=== PATIENT | female | born 1995 | race American Indian/Alaskan Native ===

== ENCOUNTER 2020-12-29 13:57 | Inpatient (IN) | payer MEDICAID ==
[2020-12-29] MEDS ORDERED: ePHEDrine SULFATE 50 MG/1 ML INJ IV PRN (15:13)
[2020-12-29] MEDS ORDERED: MINERAL OIL 30 ML ORAL LIQD PO PRN (15:13)
[2020-12-29] MEDS ORDERED: LOPERAMIDE 2 MG CAP PO PRN (15:13)
[2020-12-29] MEDS ORDERED: BUTORPHANOL 2 MG/1 ML INJ IV PRN (15:13)
[2020-12-29] MEDS ORDERED: ONDANSETRON 4 MG/2 ML INJ IV PRN (15:13)
[2020-12-29] MEDS ORDERED: OXYTOCIN 10 UNIT/1 ML INJ IM PRN (15:13)
[2020-12-29] MEDS ORDERED: TERBUTALINE 1 MG/1 ML INJ SUB-Q PRN (15:13)
[2020-12-29] MEDS ORDERED: CARBOPROST TROMETHAMINE 250 MCG/1 ML INJ IM PRN (15:13)
[2020-12-29] MEDS ORDERED: LIDOCAINE (2%) 20 MG/1 ML VIAL 20 ML MDV INFILTRATI ONE (15:13)
[2020-12-29] MEDS ORDERED: METHYLERGONOVINE MALEATE 0.2 MG/ML VIAL IM PRN (15:13)
[2020-12-29] MEDS ORDERED: miSOPROStol 200 MCG TAB PR PRN (15:13)
[2020-12-29] MEDS ORDERED: AMPICILLIN/NS 2 GM/100 ML 2 GM/100 ML BAG IV ONE (15:13)
[2020-12-29] MEDS ORDERED: fentaNYL 100 MCG/2 ML INJ IV PRN (15:13)
[2020-12-29] MEDS ORDERED: ACETAMINOPHEN 325 MG TAB PO PRN ×2 (15:13→20:39)
--- NOTE | 2020-12-29 15:26 | History and Physical Report ---
History of Present Illness Date of examination: 12/29/20 Date of admission: 12/29/20 Chief complaint: Contractions History of present illness: 25 year old presents to L&D with contractions. Patient reports contractions started at 3:00 AM. Patient denies leaking of water. She reports small amount of bloody show. She reports active movement. Patient received care at [facility] and records are available. EDC 01/07/21 (confirmed by 14 week US). significant for the following: IUGR, GBS positive. labs are as follows: A+, antibody screen negative, hepatitis B surface antigen negative, hepatitis C antibody negative, HIV negative, RPR nonreactive, rubella immune, varicella immune, hemoglobin electrophoresis negative, 1 hour sugar test 126, AFP negative, pap smear negative, gonorrhea negative, chlamydia negative, trichomonas negative, GBS positive. Past History Past Medical History: no pertinent history Past Surgical History: no surgical history [employer] History: denies: abnormal PAP smear, chlamydia, gonorrhea, hepatitis B, hepatitis C, herpes, HIV, syphilis, trichomonas Family/Genetic History: none Social history: lives with family, full code. denies: smoking, alcohol abuse, prescription drug abuse, IV drug use - Obstetrical History Expected Date of Delivery: 01/07/21 Actual Gestation: 38 Week(s) 5 Day(s) : 2 Para: 1 Hx # Term Pregnancies: 1 Number of Pregnancies: 0 Spontaneous Abortions: 0 Induced : 0 Number of Living Children: 1 Medications and Allergies Allergies Allergy/AdvReac Type Severity Reaction Status Date / Time No Known Allergies Allergy Verified 12/29/20 14:51 Active Meds: Active Medications Acetaminophen (Acetaminophen 325 Mg Tab) 650 mg PO Q4H PRN PRN Reason: Pain, Mild (1-3) Butorphanol Tartrate (Butorphanol 2 Mg/1 Ml Inj) 1 mg IV Q2H PRN PRN Reason: Pain, Moderate(4-6) LABOR PAIN Carboprost Tromethamine (Carboprost Tromethamine 250 Mcg/1 Ml Inj) 250 mcg IM ONCE PRN PRN Reason: Uterine Bleeding Ephedrine Sulfate (Ephedrine Sulfate 50 Mg/1 Ml Inj) 10 mg IV Q2M PRN PRN Reason: Hypotension Fentanyl (Fentanyl 100 Mcg/2 Ml Inj) 100 mcg IV Q2H PRN PRN Reason: Pain,Severe (7-10) LABOR PAIN Oxytocin/Sodium Chloride (Pitocin/Ns 30 Unit/500ml) 30 units in 500 mls @ 2 mls/hr IV TITR SARAH; Protocol Lactated Ringer's (Lactated Ringers) 1,000 mls @ 125 mls/hr IV DIRECT SARAH Oxytocin/Sodium Chloride (Pitocin/Ns 30 Unit/500ml) 30 units in 500 mls @ 40 mls/hr IV TITR SARAH; Protocol Ampicillin Sodium (Ampicillin/Ns 2 Gm/100 Ml) 2 gm in 100 mls @ 100 mls/hr IV ONCE ONE; Protocol Stop: 12/29/20 16:12 Ampicillin Sodium (Ampicillin/Ns 1 Gm/50 Ml) 1 gm in 50 mls @ 100 mls/hr IV Q4H SARAH; Protocol Loperamide HCl (Loperamide 2 Mg Cap) 2 mg PO ONCE PRN PRN Reason: give with Hemabate Methylergonovine Maleate (Methylergonovine Maleate 0.2 Mg/Ml Vial) 0.2 mg IM ONCE PRN PRN Reason: Uterine Bleeding Mineral Oil (Mineral Oil 30 Ml Oral Liqd) 30 ml PO QHS PRN PRN Reason: Constipation Misoprostol (Misoprostol 200 Mcg Tab) 800 mcg KS ONCE PRN PRN Reason: Uterine Bleeding Ondansetron HCl (Ondansetron 4 Mg/2 Ml Inj) 4 mg IV Q8H PRN PRN Reason: Nausea And Vomiting Oxytocin (Oxytocin 10 Unit/1 Ml Inj) 10 unit IM ONCE PRN PRN Reason: Uterine Bleeding Terbutaline Sulfate (Terbutaline 1 Mg/1 Ml Inj) 0.25 mg SUB-Q ONCE PRN PRN Reason: Hyperstimulation/Hypertonicity Review of Systems All systems: negative (contractions) - Vital Signs Vital signs: Vital Signs Pulse Pulse Ox 87 82 L 12/29/20 14:44 12/29/20 14:44 Temp Pulse Resp BP Pulse Ox 98.3 F 79 18 121/60 99 12/29/20 14:51 12/29/20 15:14 12/29/20 14:51 12/29/20 14:51 12/29/20 15:14 - Physical Exam Abdomen: Positive: normal appearance, soft. Negative: distention, tenderness, guarding, rigidity Genitourinary (Female): Positive: normal external genitalia, normal perenium. Negative: perineal/vulvar lesions Vagina: Positive: normal moisture Uterus: Positive: enlarged. Negative: tender Anus/Rectum: Positive: normal perianal skin Extremities: Positive: normal. Negative: tenderness, edema - Obstetrical FHR: category 1 Uterine Contraction Monitor Mode: External Cervical Dilatation: 4.5 Cervical Effacement Percentage: 90 station: 0 Uterine Contraction Pattern: Regular Uterine Contraction Intensity: Moderate Results All other labs normal. Assessment and Plan A: at 38 weeks, 5 days gestation. Active labor. GBS positive. IUGR. P: Admit. Continuous EFM. GBS prophylaxis. Anticipate vaginal .
[2020-12-29] MEDS: LACTATED RINGERS 1,000 ML IV SCH ×3 (15:55→17:50)
[2020-12-29] MEDS ORDERED: OXYTOCIN DRIP 30 UNITS/500 ML BAG IV SCH ×2 (16:00)
[2020-12-29 16:18] LABS: Hematocrit 36.6 % (30.3-42.9); Hemoglobin 12.6 gm/dl (10.1-14.3); Mean Corpuscular HGB Conc 34 % (30-34); Mean Corpuscular Volume 83 fl (79-97); Platelet Count 198 K/mm3 (140-440); Red Blood Count 4.43 M/mm3 (3.65-5.03); Red Cell Distribution Width 13.9 % (13.2-15.2)
[2020-12-29] MEDS ORDERED: NALOXONE 2 MG/2 ML INJ IV PRN (17:03)
--- NOTE | 2020-12-29 17:05 | Anesthesia Consultation ---
Anesthesia Consult and Med Hx Date of service: 12/29/20 - Airway Anesthetic Teeth Evaluation: Poor ROM Head & Neck: Adequate Mental/Hyoid Distance: Adequate Mallampati Class: Class II Intubation Access Assessment: Probably Good - Pulmonary Exam CTA: Yes - Cardiac Exam Cardiac Exam: RRR - Pre-Operative Health Status ASA Pre-Surgery Classification: ASA2 Proposed Anesthetic Plan: Epidural - Pulmonary Hx Smoking: No Hx Asthma: No Hx Respiratory Symptoms: No SOB: No COPD: No Home Oxygen Therapy: No Hx Pneumonia: No Hx Sleep Apnea: No - Cardiovascular System Hx Hypertension: No Hx Coronary Artery Disease: No Hx Heart Attack/AMI: No Hx Angina: No Hx Percutaneous Transluminal Coronary Angioplasty (PTCA): No Hx Cardia Arrhythmia: No Hx Pacemaker: No Hx Internal Defibrillator: No Hx Valvular Heart Disease: No Hx Heart Murmur: No Hx Peripheral Vascular Disease: No - Central Nervous System Hx Neuromuscular Disorder: No Hx Seizures: No CVA: No Hx Back Pain: Yes Hx Psychiatric Problems: No - Gastrointestinal Hx Ulcer: No Hx Gastroesophageal Reflux Disease: Yes - Endocrine Hx Renal Disease: No Hx End Stage Renal Disease: No Hx Cirrhosis: No Hx Liver Disease: No Hx Insulin Dependent Diabetes: No Hx Non-Insulin Dependent Diabetes: No Hx Thyroid Disease: No Hx Hypothyroidism: No Hx Hyperthyroidism: No - Hematic Hx Anemia: No Hx Sickle Cell Disease: No - Other Systems Hx Alcohol Use: No Hx Substance Use: No Hx Cancer: No Hx Obesity: Yes
--- NOTE | 2020-12-29 17:49 | Progress Note ---
Labor Epidural - Labor Epidural Start Time: 17:27 Stop Time: 17:35 Performed by:: EDUARD ESCOBAR Procedure: Patient is requesting a laboring epidural for laboring pain. Patient IDed, H&P reviewed, all questions and concerns were answered, and consent was signed. Timeout was performed at bedside. Patient in sitting position. Sterile prep and drape was performed. [3] ml of 1% lidocaine skin wheal at L[3]- L [4]. 18- gauge Jonathan epidural needle was advanced to loss of resistance with saline technique 6cm. Negative CSF negative blood. Epidural catheter advanced to [10] centimeters. [NEGATIVE] Aspiration [NEGATIVE] test dose. Sterile dressing applied. Patient tolerated procedure.
[2020-12-29] MEDS: ePHEDrine SULFATE 50 MG/1 ML INJ IV PRN ×3 (17:57→18:58)
[2020-12-29] MEDS ORDERED: fentaNYL-BUPIV 2 MCG/ML-0.125% 200 MCG/100 ML BAG EPIDURAL SCH (18:00)
[2020-12-29] MEDS ORDERED: AMPICILLIN/NS 1 GM/50 ML 1 GM/50 ML BAG IV SCH (20:00)
[2020-12-29] MEDS ORDERED: diphenhydrAMINE 25 MG CAP PO PRN (20:39)
[2020-12-29] MEDS ORDERED: HYDROcodone/ACETAMINOPHEN 5-325 MG TAB PO PRN (20:39)
[2020-12-29] MEDS ORDERED: LANOLIN/ZINC/DIMETHICONE (LANSINOH) 7 GM TP PRN (20:39)
[2020-12-29] MEDS ORDERED: MAGNESIUM HYDROXIDE (MOM) ORAL LIQD UDC PO PRN (20:39)
[2020-12-29] MEDS ORDERED: WITCH HAZEL/ GLYCERIN PAD TP PRN (20:39)
[2020-12-29] MEDS ORDERED: BENZOCAINE/MENTHOL 20/0.5% TOP SPRAY 56 GM TP PRN (20:39)
--- NOTE | 2020-12-29 20:49 | Procedure Note ---
OB Delivery Note - Delivery Date of Delivery: 12/29/20 Surgeon: SOILA WALL Estimated blood loss: 100cc - Vaginal Delivery presentation: vertex Delivery position: OA Intrapartum events: none Delivery induction: none Delivery augmentation: rupture of membranes Delivery monitor: external FHT, external uterine Route of delivery: Delivery placenta: spontaneous Delivery cord: 3 umbilical vessels Episiotomy: none Delivery laceration: none Anesthesia: epidural Delivery comments: Spontaneous vaginal delivery at 20:24 of liveborn female weighing 5 lb. 10 oz. over intact perineum with apgars of 8/9. Epidural anesthesia. was atraumatic; no nuchal cord. Baby placed skin to skin with mom immediately after delivery. Baby was dried with warm towels, bulb suctioned, and stimulated. Spontaneous cry and respirations. 3 vessel cord double clamped and cut and baby taken to radiant warmer for further suctioning. Spontaneous delivery of intact placenta and membranes by banuelos mechanism. EBL 100 cc. Pitocin to IV fluids after delivery of placenta. Fundus firm and midline. No lacerations noted. Tiny vaginal skid larisa, not bleeding and not repaired. Vaginal sweep negative. Sponge count correct. Mother and baby stable in birthing room.
[2020-12-30] MEDS: IBUPROFEN 600 MG TAB PO SCH ×4 (00:43→18:22)
--- NOTE | 2020-12-30 08:46 | Progress Note ---
Assessment and Plan A: S/P P: Continue routine pp care Awaiting pp H&H D/C home tomm if stable Subjective - Subjective Date of service: 12/30/20 Principal diagnosis: s/p Patient reports: appetite normal, voiding normally, pain well controlled, flatus, ambulating normally [place]: bottle feeding Objective - Vital Signs Latest vital signs: Vital Signs Temp Pulse Resp BP BP Pulse Ox Pulse Ox 12/30/20 05:53 97 12/30/20 04:30 98.6 F 70 16 119/68 12/30/20 04:00 97 12/30/20 01:25 99 12/30/20 00:10 97 12/30/20 00:00 98.7 F 78 18 105/78 12/29/20 22:20 100 12/29/20 22:15 98.1 F 60 18 105/40 100 12/29/20 22:01 54 L 100 12/29/20 21:56 57 L 100 12/29/20 21:55 63 99/50 12/29/20 21:51 54 L 99 12/29/20 21:46 60 99 12/29/20 21:41 53 L 100 12/29/20 21:40 50 L 102/53 12/29/20 21:36 57 L 99 12/29/20 21:31 61 98 12/29/20 21:26 59 L 99 12/29/20 21:25 56 L 101/52 12/29/20 21:21 61 99 12/29/20 21:16 61 100 12/29/20 21:11 59 L 99 12/29/20 21:10 54 L 104/52 12/29/20 21:06 59 L 98 12/29/20 21:01 57 L 99 12/29/20 20:56 61 109/57 99 12/29/20 20:51 56 L 100 12/29/20 20:46 61 99 12/29/20 20:41 67 98 12/29/20 20:40 98.2 F 12/29/20 20:38 70 99/55 12/29/20 20:37 90 105/51 12/29/20 20:36 90 98 12/29/20 20:32 83 95/51 12/29/20 20:31 78 98 12/29/20 20:30 67 93/54 12/29/20 20:29 58 L 104/54 12/29/20 20:26 62 110/57 99 12/29/20 20:25 70 112/57 12/29/20 20:21 113 H 67 L 12/29/20 20:20 93 H 89 12/29/20 20:18 58 L 118/59 12/29/20 20:17 62 103/53 12/29/20 20:16 67 100 12/29/20 20:15 69 126/60 12/29/20 20:13 71 115/51 90 12/29/20 20:11 63 104/51 100 12/29/20 20:07 67 93 12/29/20 20:06 65 108/56 95 12/29/20 20:04 59 L 113/58 12/29/20 20:02 69 106/59 94 12/29/20 20:01 63 96 12/29/20 20:00 61 104/55 12/29/20 19:58 66 111/54 12/29/20 19:56 66 112/55 100 12/29/20 19:54 72 114/64 12/29/20 19:52 109 H 127/67 12/29/20 19:51 98 H 116/62 100 12/29/20 19:48 60 110/57 12/29/20 19:46 64 115/58 99 12/29/20 19:45 63 113/52 12/29/20 19:42 81 101/53 12/29/20 19:41 79 100 12/29/20 19:40 61 102/54 12/29/20 19:38 60 97/53 12/29/20 19:37 58 L 104/51 12/29/20 19:36 58 L 100 12/29/20 19:34 62 97/55 12/29/20 19:32 59 L 99/54 12/29/20 19:31 58 L 100 12/29/20 19:30 55 L 97/54 12/29/20 19:28 55 L 95/52 12/29/20 19:26 61 95/54 100 12/29/20 19:24 59 L 92/55 12/29/20 19:22 55 L 99/50 12/29/20 19:21 60 100 12/29/20 19:20 56 L 99/55 12/29/20 19:18 56 L 98/49 12/29/20 19:16 56 L 98/54 100 12/29/20 19:14 56 L 98/53 12/29/20 19:12 56 L 99/55 12/29/20 19:11 61 99 12/29/20 19:10 60 98/53 12/29/20 19:08 59 L 108/53 12/29/20 19:06 60 99/51 100 12/29/20 19:04 61 105/54 12/29/20 19:02 59 L 101/53 12/29/20 19:01 63 100 12/29/20 19:00 57 L 104/50 100 12/29/20 18:58 60 102/53 12/29/20 18:56 63 103/54 100 12/29/20 18:54 56 L 94/53 12/29/20 18:52 70 104/52 12/29/20 18:51 75 100 12/29/20 18:50 60 100/53 12/29/20 18:49 60 104/51 12/29/20 18:46 64 110/58 100 12/29/20 18:45 64 126/60 12/29/20 18:42 54 L 105/57 12/29/20 18:41 59 L 100 12/29/20 18:40 59 L 114/60 12/29/20 18:38 62 116/63 12/29/20 18:36 60 109/55 100 12/29/20 18:34 57 L 108/58 12/29/20 18:32 54 L 108/57 12/29/20 18:31 59 L 100 12/29/20 18:30 98.1 F 56 L 16 107/59 12/29/20 18:28 59 L 113/63 12/29/20 18:26 57 L 111/60 100 12/29/20 18:24 63 110/56 12/29/20 18:22 57 L 119/61 12/29/20 18:21 62 100 12/29/20 18:20 59 L 111/57 12/29/20 18:18 63 110/57 12/29/20 18:16 63 113/56 100 12/29/20 18:14 57 L 113/59 12/29/20 18:12 57 L 111/56 12/29/20 18:11 60 100 12/29/20 18:10 64 107/57 12/29/20 18:08 55 L 117/56 12/29/20 18:06 61 100 12/29/20 18:04 57 L 99/50 12/29/20 18:02 63 99/51 12/29/20 18:01 64 105/55 98 12/29/20 17:56 69 107/57 99 12/29/20 17:54 67 108/55 12/29/20 17:52 60 113/56 12/29/20 17:51 68 100 12/29/20 17:50 67 110/55 12/29/20 17:48 68 108/56 12/29/20 17:46 66 107/54 100 12/29/20 17:44 74 119/56 12/29/20 17:42 68 129/55 12/29/20 17:41 69 99 12/29/20 17:40 70 128/63 12/29/20 17:39 74 128/62 12/29/20 17:36 68 100 12/29/20 17:31 71 100 12/29/20 17:26 80 100 12/29/20 17:24 81 91 12/29/20 17:21 98 H 93 12/29/20 17:19 66 90 12/29/20 16:55 100 12/29/20 16:24 67 100 12/29/20 16:19 75 99 12/29/20 16:16 100 12/29/20 16:14 73 100 12/29/20 16:09 89 100 12/29/20 16:04 63 99 12/29/20 15:59 73 99 12/29/20 15:54 63 98 12/29/20 15:49 77 100 12/29/20 15:44 78 99 12/29/20 15:39 92 H 98 12/29/20 15:34 64 98 12/29/20 15:29 68 98 12/29/20 15:27 79 94/55 12/29/20 15:24 78 98 12/29/20 15:19 70 99 12/29/20 15:14 79 99 12/29/20 15:09 79 98 12/29/20 15:04 79 100 12/29/20 14:59 72 99 12/29/20 14:54 73 100 12/29/20 14:51 98.3 F 82 18 121/60 100 12/29/20 14:49 71 100 12/29/20 14:48 68 121/60 12/29/20 14:44 87 82 L Intake and Output 12/29/20 12/30/20 12/30/20 22:59 06:59 14:59 Intake Total 12.500 400 Output Total 200 1400 Balance -187.500 -1000 Intake: IV 12.500 Lactated Ringers 1,000 ml 12.500 @ 125 mls/hr IV DIRECT SARAH Rx#:[id number] Oral 400 Output: Urine 200 1400 Void 200 1400 Other: Total, Intake Amount 200 Total, Output Amount 200 600 # Voids Void 1 - Exam Breasts: Present: normal Abdomen: Present: normal appearance, soft, normal bowel sounds Vulva: both: normal Uterus: Present: normal, firm, fundal height below umbilicus Extremities: Present: normal
--- NOTE | 2020-12-30 08:48 | Discharge Summary ---
Providers - Providers Date of Admission: 12/29/20 15:13 Date of discharge: 12/31/20 Attending physician: ELISA PANDEY MD Primary care physician: ELISA PANDEY MD Hospitalization Reason for admission: active labor, IUP at term Delivery: Episiotomy: none Laceration: none Other procedures: none complications: none Discharge diagnosis: IUP at term delivered [place] baby: female Hospital course: Pt was admitted in active labor and had a w/o pp complications. See H&p, delivery summary and pp notes. Condition at discharge: Stable Disposition: HOME / SELF CARE / HOMELESS Plan - Discharge Medications Prescriptions: Ibuprofen [Motrin 600 MG tab] 600 mg PO Q6HR PRN #30 tablet PRN Reason: Menstrual Cramps - Provider Discharge Summary Activity: routine, no sex for 6 weeks, no heavy lifting 4 weeks, no strenuous exercise Diet: routine Instructions: routine Additional instructions: [] Smoking cessation referral if applicable(refer to patient education folder for contact #) [] Refer to [facility]'s [facility] Booklet Call your doctor immediately for: * Fever > 100.5 * Heavy vaginal bleeding ( >1 pad per hour) * Severe persistent headache * Shortness of breath * Reddened, hot, painful area to leg or breast * Drainage or odor from incision. * Keep incision clean and dry at all times and follow doctor's instructions regarding bathing/showering - Follow up plan Follow up: ELISA PANDEY MD [Primary Care Provider] - 6 Weeks
[2020-12-30 10:23] LABS: Hematocrit 31.4 % (30.3-42.9)
--- NOTE | 2020-12-30 18:38 | Post Anesthesia Evaluation ---
- Post Anesthesia Evaluation Patient Participated: Yes Airway Patent: Yes Stable Respiratory Function: Yes Nausea/Vomiting: No Temp > 96.8F: Yes Pain Manageable: Yes Adequeate Hydration: Yes Anesthesia Complications: No Block Receding Appropriately: Yes Patient on Ventilator: No
[2020-12-31] MEDS: IBUPROFEN 600 MG TAB PO SCH ×3 (04:12→12:22)
[2020-12-31 13:09] VITALS: BP 118/70
== END 2020-12-31 13:00 | disposition home or self-care (01) | DRG 775 ==
LOC: TRG 13:57 → APU 13:59 → LD 15:13 → TRG 15:13 → OB 22:11
PROVIDERS: ADMIT Obstetrics & Gynecology; ATTEND Obstetrics & Gynecology
PROC: 10E0XZZ Delivery of Products of Conception, External Approach (ICD-10-PCS; principal; 2020-12-29)
PROC: 3E0R3BZ Introduction of Anesthetic Agent into Spinal Canal, Percutaneous Approach (ICD-10-PCS; 2020-12-29)
PROC: 00HU33Z Insertion of Infusion Device into Spinal Canal, Percutaneous Approach (ICD-10-PCS; 2020-12-29)
DX: O36.5930 Maternal care for other known or suspected poor fetal growth, third trimester, not applicable or unspecified (principal); Z3A.38 38 weeks gestation of pregnancy; Z37.0 Single live birth; Z20.822 Contact with and (suspected) exposure to COVID-19; O99.824 Streptococcus B carrier state complicating childbirth; O99.62 Diseases of the digestive system complicating childbirth; O99.214 Obesity complicating childbirth; K21.9 Gastro-esophageal reflux disease without esophagitis
CPT/HCPCS: 36415; 85014; 85018; 85027; 86592; 86850; 86900; 86901; G0378; A6250; J0290; J7120; U0003